=== PATIENT | female | born 1990 | race Caucasian/White ===

== ENCOUNTER → 2018-11-29 | Outpatient (CLI) | payer SELFPAY ==
[2018-11-29 17:49] LABS: hCG Titer Quant., Serum 126 mIU/mL (1-3)
== END | disposition home or self-care (01) ==
PROVIDERS: Visit Provider Obstetrics & Gynecology
DX: O20.0 Threatened abortion (principal); Z3A.00 Weeks of gestation of pregnancy not specified
CPT/HCPCS: 36415; 84702

== ENCOUNTER → 2018-12-01 09:20 | Outpatient (CLI) | payer SELFPAY ==
[2018-12-01 11:01] LABS: hCG Titer Quant., Serum 55 mIU/mL (1-3)
== END ==
PROVIDERS: Visit Provider Obstetrics & Gynecology
DX: O20.0 Threatened abortion (principal); Z3A.00 Weeks of gestation of pregnancy not specified
CPT/HCPCS: 36415; 84702

== ENCOUNTER → 2018-12-08 09:07 | Outpatient (CLI) | payer SELFPAY ==
[2018-12-08 11:56] LABS: hCG Titer Quant., Serum 8 mIU/mL (1-3)
== END ==
PROVIDERS: Visit Provider Obstetrics & Gynecology
DX: O20.0 Threatened abortion (principal); Z3A.00 Weeks of gestation of pregnancy not specified
CPT/HCPCS: 36415; 84702